=== PATIENT | female | born 2000 | race Two or more races ===

== ENCOUNTER 2022-07-01 12:28 | Observation (INO) | payer OTHER ==
[~2022-07-01] VITALS: Ht 154.9 cm; Wt 55.8 kg
[~2022-07-01 12:28] MED LIST: PNV1TABL76 PO
[2022-07-01] MEDS ORDERED: LACTATED RINGERS 1,000 ML IV SCH (14:15)
[2022-07-01 14:18] LABS: CLARITY URINE CLOUDY (CLEAR); COLOR URINE YELLOW (YELLOW); KETONES URINE NEGATIVE (NEGATIVE); LEUKOCYTE ESTERASE URINE 2+ (NEGATIVE); NITRITE URINE NEGATIVE (NEGATIVE); OCCULT BLOOD URINE NEGATIVE (NEGATIVE); PH URINE 7.5 (4.5-8.0); PROTEIN URINE NEGATIVE (NEGATIVE); SPECIFIC GRAVITY URINE 1.013 (1.005-1.030)
== END 2022-07-01 16:30 | disposition home or self-care (01) ==
LOC: 8 EST LDRP 12:28
PROVIDERS: ADMIT Obstetrics & Gynecology; ATTEND Obstetrics & Gynecology
DX: Z34.93 Encounter for supervision of normal pregnancy, unspecified, third trimester (principal); Z3A.35 35 weeks gestation of pregnancy
CPT/HCPCS: 81003; 96360; 96361; G0378; 99281

== ENCOUNTER 2022-07-23 11:27 | Observation (INO) | payer OTHER | END 2022-07-23 15:15 | disposition home or self-care (01) | LOC: 8 EST LDRP 11:27 | PROVIDERS: ADMIT Obstetrics & Gynecology; ATTEND Obstetrics & Gynecology | DX: O36.8330 Maternal care for abnormalities of the fetal heart rate or rhythm, third trimester, not applicable or unspecified (principal); O62.9 Abnormality of forces of labor, unspecified; Z3A.38 38 weeks gestation of pregnancy | CPT/HCPCS: 59025; 76815; 76818; 99281; G0378 ==

== ENCOUNTER 2022-07-30 06:34 | Inpatient (IN) | payer OTHER ==
[~2022-07-30] VITALS: Ht 157.5 cm; Wt 60.8 kg
[2022-07-30] MEDS ORDERED: LIDOCAINE HCL 1% 20ML VIAL (Pyxis) INJ INFIL SCH (08:15)
[2022-07-30] MEDS ORDERED: METHYLERGONOVINE MALEATE 0.2 MG/ML IM PRN ×2 (08:15→19:30)
[2022-07-30] MEDS ORDERED: LACTATED RINGERS 1,000 ML IV SCH (08:15)
[2022-07-30] MEDS ORDERED: CARBOPROST TROMETHAMINE 250 MCG/ML AMPUL IM PRN (08:15)
[2022-07-30] MEDS ORDERED: MINERAL OIL 30ML BOTTLE PO ONE (08:15)
[2022-07-30] MEDS ORDERED: BUTORPHANOL TARTRATE 2 MG/ML VIAL IV PRN (08:15)
[2022-07-30] MEDS ORDERED: NALOXONE HCL 0.4 MG/ML 1ML VIAL IM PRN (08:15)
[2022-07-30 08:33] LABS: BASOPHILS % 0.3 % (0.0-2.0); EOSINOPHILS % 0.7 % (0.0-5.0); HEMATOCRIT. 33.1 % (36.0-48.0); HEMOGLOBIN. 11.1 g/dL (12.0-16.0); LYMPHOCYTES % 26.2 % (20.0-50.0); MEAN CORPUSCULAR HEMOGLOBIN 29.1 pg (28.0-32.0); MEAN CORPUSCULAR VOLUME 86.5 fL (81.0-99.0); MEAN PLATELET VOLUME 10.5 fl (7.4-10.4); MONOCYTES % 8.4 % (2.0-8.0); NEUTROPHILS % 64.4 % (40.0-76.0); PLATELET 153 x1000/uL (130-400); RED BLOOD CELL COUNT 3.83 mill/uL (4.2-5.4); RED CELL DISTRIBUTION WIDTH 13.5 % (11.6-14.6)
[2022-07-30 08:34] LABS: CLARITY URINE CLOUDY (CLEAR); COLOR URINE YELLOW (YELLOW); KETONES URINE NEGATIVE (NEGATIVE); LEUKOCYTE ESTERASE URINE 2+ (NEGATIVE); NITRITE URINE NEGATIVE (NEGATIVE); OCCULT BLOOD URINE NEGATIVE (NEGATIVE); PH URINE 7.5 (4.5-8.0); PROTEIN URINE NEGATIVE (NEGATIVE); SPECIFIC GRAVITY URINE 1.016 (1.005-1.030)
[2022-07-30 08:43] LABS: PARTIAL THROMBOPLASTIN TIME 29.8 sec (23.4-31.0); PROTHROMBIN TIME 10.4 sec (9.6-11.0)
[2022-07-30 08:59] LABS: *AMPHETAMINES SCREEN URINE NEGATIVE (NEGATIVE); *BARBITURATES SCREEN URINE NEGATIVE (NEGATIVE); *BENZODIAZEPINES SCREEN URINE NEGATIVE (NEGATIVE); *COCAINE SCREEN URINE NEGATIVE (NEGATIVE); CANNABINOID URINE SCREEN NEGATIVE (NEGATIVE); METHADONE URINE SCREEN NEGATIVE (NEGATIVE); OPIATES URINE SCREEN NEGATIVE (NEGATIVE); PHENCYCLIDINE URINE SCREEN NEGATIVE (NEGATIVE)
[2022-07-30] MEDS: LACTATED RINGERS 1,000 ML IV SCH ×4 (10:01→16:18)
[2022-07-30 10:15] LABS: HEPATITIS B SURFACE ANTIGEN NEGATIVE
[2022-07-30] MEDS: OXYTOCIN 30 UNITS/500ML NS PMX 500 ML IV SCH ×2 (16:25→18:27)
[2022-07-30] MEDS ORDERED: OXYTOCIN 30 UNITS/500ML NS PMX 500 ML IV SCH (19:30)
[2022-07-30] MEDS ORDERED: RHO(D) IMMUNE GLOBULIN 300 MCG/SYR IM PRN (19:30)
[2022-07-30] MEDS ORDERED: IBUPROFEN 400MG TABLET PO PRN (19:30)
[2022-07-30] MEDS ORDERED: LANOLIN OINT 7GM TUBE TOP PRN (19:30)
[2022-07-30] MEDS ORDERED: DIPHENHYDRAMINE 25MG CAPSULE PO PRN (19:30)
[2022-07-30 20:45] VITALS: BP 107/61
[2022-07-30 21:30] VITALS: BP 106/62
[2022-07-31] MEDS: IBUPROFEN 800MG TABLET PO PRN ×3 (01:22→22:59)
[2022-07-31 03:00] VITALS: BP 101/55
[2022-07-31 05:40] LABS: BASOPHILS % 0.2 % (0.0-2.0); EOSINOPHILS % 0.2 % (0.0-5.0); HEMATOCRIT. 27.6 % (36.0-48.0); HEMOGLOBIN. 9.2 g/dL (12.0-16.0); LYMPHOCYTES % 15.2 % (20.0-50.0); MEAN CORPUSCULAR VOLUME 86.8 fL (81.0-99.0); MEAN PLATELET VOLUME 10.2 fl (7.4-10.4); MONOCYTES % 7.1 % (2.0-8.0); NEUTROPHILS % 77.3 % (40.0-76.0); PLATELET 139 x1000/uL (130-400); RED BLOOD CELL COUNT 3.18 mill/uL (4.2-5.4); RED CELL DISTRIBUTION WIDTH 13.5 % (11.6-14.6)
[2022-07-31 08:00] VITALS: BP 90/50
[2022-07-31] MEDS: PRENATAL VIT/FE FUMARATE/FA TABLET PO SCH (10:28)
[2022-07-31 16:00] VITALS: BP 97/63
[2022-07-31 20:00] VITALS: BP 98/64
[2022-08-01 04:00] VITALS: BP 103/67
[2022-08-01] MEDS: IBUPROFEN 800MG TABLET PO PRN (04:11)
[2022-08-01] MEDS ORDERED: FERR324T4 MT (06:35)
[2022-08-01] MEDS ORDERED: IBUP-2030 PO (06:35)
[2022-08-01 08:10] VITALS: BP 100/65
[2022-08-01] MEDS: PRENATAL VIT/FE FUMARATE/FA TABLET PO SCH (08:29)
== END 2022-08-01 11:30 | disposition home or self-care (01) | DRG 560 ==
LOC: OBSVTOIN 06:34 → 8 EST LDRP 06:34 → 8EST 20:30
PROVIDERS: ADMIT Obstetrics & Gynecology; ATTEND Obstetrics & Gynecology
PROC: 10E0XZZ Delivery of Products of Conception, External Approach (ICD-10-PCS; principal; 2022-07-30)
DX: O99.02 Anemia complicating childbirth (principal); Z37.0 Single live birth; D62 Acute posthemorrhagic anemia; Z3A.39 39 weeks gestation of pregnancy; Z20.822 Contact with and (suspected) exposure to COVID-19
CPT/HCPCS: 36415; 80305; 81003; 85025; 86592; 86703; 86762; 86850; 86900; 87077; 87340; 87426; 99281; J0595; J2310; J7120; J2590